=== PATIENT | male | born 1965 | race Caucasian/White ===

== ENCOUNTER 2016-11-25 12:29 | Emergency (ER) | payer BC, OTHER ==
[~2016-11-25] VITALS: Ht 182.9 cm; Wt 100.0 kg
[2016-11-25 12:31] VITALS: BP 130/84
[2016-11-25] MEDS ORDERED: IBUPROFEN 200 MG TABLET ONE (13:25)
[2016-11-25] MEDS ORDERED: IBUPROFEN 200 MG TABLET PO ONE ×2 (13:30→14:00)
[2016-11-25] MEDS ORDERED: ONDANSETRON ODT 4 MG PO ONE (14:00)
[2016-11-25] MEDS ORDERED: OXYcodone/APAP 5/325MG TABLET PO ONE ×2 (14:00→15:00)
[2016-11-25] MEDS ORDERED: ONDANSETRON ODT 4 MG ONE (14:42)
[2016-11-25] MEDS ORDERED: OXYcodone/APAP 5/325MG TABLET ONE (14:43)
== END 2016-11-25 14:53 | disposition home or self-care (01) ==
LOC: ED 14:47
DX: S70.02XA Contusion of left hip, initial encounter (principal); S80.212A Abrasion, left knee, initial encounter; S80.211A Abrasion, right knee, initial encounter; V29.49XA Motorcycle driver injured in collision with other motor vehicles in traffic accident, initial encounter; Y93.89 Activity, other specified; Y99.8 Other external cause status; Y92.410 Unspecified street and highway as the place of occurrence of the external cause
CPT/HCPCS: 72190; 99285; Q0162; 99284